=== PATIENT | female | born 1970 | race Caucasian/White ===

== ENCOUNTER 2021-10-21 08:51 | Outpatient (RCR) | payer BC, MEDICAID, SELFPAY | END 2021-12-31 12:00 | disposition home or self-care (01) | LOC: PT 08:51 | PROVIDERS: Visit Provider Internal Medicine | DX: I25.10 Atherosclerotic heart disease of native coronary artery without angina pectoris (principal); Z95.2 Presence of prosthetic heart valve | CPT/HCPCS: 93798 ==

== ENCOUNTER 2021-12-05 13:26 | Emergency (ER) | payer BC, MEDICAID, SELFPAY ==
--- NOTE | 2021-12-05 14:02 | EXP.UTC ---
Discharge Plan Disposition Patient Disposition: Home, Self-Care Condition: Good Prescriptions Prescriptions: New saekbirfkghgjlm-zhebjpnln-JG [Bromfed DM] 2-30-10 mg/5 mL Syrup 5 - 10 ml PO Q4H PRN (Reason: Cough) Qty: 240 0RF Referrals Follow up/Referrals: Birdie Bellamy [Primary Care Provider] - See instructions Clinical Impressions Clinical Impression: Upper respiratory infection Discharge ED Provider: Haven Cutler [facility] HPI General Stated complaint: Cough, headache, runny nose Time Seen by Provider: 12/05/21 14:02 History of Present Illness Provider Complaint: Cough, headache, runny nose, sinus pressure X 3 days. No fever. Onset (ago): day(s) (3) Relieving factors: none Exacerbating factors: none Associated symptoms: denies other symptoms Treatments prior to arrival: none Related Data Previous Rx's Medication Instructions Recorded rbdfmhokznnapdc-rrfmggozsswncrn-ME 5 - 10 ml PO Q4H PRN Cough #240 mL 12/05/21 2 mg-30 mg-10 mg/5 mL oral syrup (Bromfed DM) Allergies Allergy/AdvReac Type Severity Reaction Status Date / Time No Known Allergies Allergy Unverified 12/05/21 14:09 [facility] Social History Smoking Status: Never smoker alcohol intake: never current occupational status: unemployed Travel in the last 8 weeks: None ROS Obtained: Yes All systems reviewed & no additional complaints except as documented Constitutional Constitutional: Denies fever(s) ENT Ears, Nose, Mouth, and Throat: Reports sinus pain and Reports sore throat Physical Exam General General appearance: alert and in no apparent distress Head Head exam: normocephalic Eye Eye exam: Present PERRL ENT ENT exam: Present normal exam, normal oropharynx and TM's normal bilaterally Neck Neck exam: Present normal inspection Chest Chest inspection: Present symmetric chest wall rise Respiratory Respiratory exam: Present normal lung sounds bilaterally and respiratory distress Cardiovascular Cardiovascular exam: Present regular rate and normal rhythm Neurological Exam Neurological exam: Present alert and oriented X3 Psychiatric Psychiatric exam: Present normal affect and normal mood Skin Skin exam: Present warm, dry and intact Medical Decision Making Teofilo Inquiry Pt receiving controlled substance: No
[2021-12-05 14:07] VITALS: BP 155/85; PULSE 80; RESP 16; TEMP 36.5; O2SAT 99; BMI 36.2
[2021-12-05 14:30] VITALS: BP 155/85; PULSE 80; RESP 16; TEMP 36.5; O2SAT 99
== END 2021-12-05 14:30 | disposition home or self-care (01) ==
PROVIDERS: Emergency Provider Physician Assistant; PCP Family Medicine
DX: J06.9 Acute upper respiratory infection, unspecified (principal)
CPT/HCPCS: 99212; G0463

== ENCOUNTER 2022-03-24 09:02 | Emergency (ER) | payer MEDICAID, SELFPAY ==
[2022-03-24 09:03] VITALS: BP 151/81; PULSE 95; RESP 16; TEMP 36.7; O2SAT 96; BMI 35.1
[2022-03-24 10:54] VITALS: BP 151/81; PULSE 95; RESP 16; TEMP 36.7; O2SAT 96; BMI 35.2
--- NOTE | 2022-03-24 11:00 | EXP.UTC ---
Discharge Plan Disposition Patient Disposition: Home, Self-Care Condition: Good Prescriptions Prescriptions: New amoxicillin-pot clavulanate 875-125 mg Tablet 1 tab PO Q12H Qty: 20 0RF No Action paroxetine HCl 10 mg tablet 10 mg PO DAILY Label Comments: TAKE 1 TABLET BY MOUTH ONCE DAILY atorvastatin 10 mg tablet 10 mg PO DAILY meloxicam 15 mg tablet 15 mg PO DAILY Label Comments: TAKE 1 TABLET BY MOUTH ONCE DAILY penicillin V potassium 500 mg tablet 500 mg PO Q4-6H Label Comments: TAKE 1 TABLET BY MOUTH EVERY 6 HOURS UNTIL GONE levothyroxine 75 mcg tablet 75 mcg PO DAILY Label Comments: TAKE 1 TABLET BY MOUTH ONCE DAILY furosemide 20 mg tablet 20 mg PO DAILY Label Comments: TAKE 1 TABLET BY MOUTH ONCE DAILY NEEDED metoprolol succinate 25 mg tablet extended release 24 hr 25 mg PO DAILY Label Comments: TAKE 1 TABLET BY MOUTH ONCE DAILY Referrals Follow up/Referrals: Birdie Bellamy [Primary Care Provider] - See instructions Activity Restrictions/Add. Instructions Additional Instructions/Restrictions: Drink plenty of fluids. Take the medications as directed. Follow up with your regular doctor. GO TO THE ER FOR ANY WORSENING SYMPTOMS Stop the penicillin that you are on and start the augmentin (amoxicillin/clavulanate). Follow up with your dentist. Make sure they know you are having these issues today. Clinical Impressions Clinical Impression: Abscess, dental Stand Alone Forms Stand Alone Forms: Work/School Release Instructions Patient Instructions: Tooth Abscess, DI for Tooth Abscess Discharge ED Provider: Favio Mcmahan [facility] General Stated complaint: Lt side of face is swollen Mode of Arrival: Ambulatory Source of Information: Patient Limitations: No Limitations Time Seen by Provider: 03/24/22 11:00 Description of Symptoms (Recalled from Triage Doc. by RN): face swollen, and pain. Had a root canal 1 month ago and now swollen and hurting. HEENT Symptoms (Recalled from RN notes): Yes Resp Symptoms (Recalled from RN notes): No Skin Symptoms (Recalled from RN notes): No MS Symptoms (Recalled from RN notes): No Functional Status (Recalled from RN notes): n/a History of Present Illness Provider Complaint: She has been having swelling of the left side of her face for the past 2 days. She has a history of a having an issue with her teeth in that area. Her dentist started her on penicillin 2 days ago, but she states that her symptoms are getting worse instead of better. Related Data Home Medications Medication Instructions Recorded Confirmed atorvastatin 10 mg tablet 10 mg PO DAILY . 03/24/22 03/24/22 furosemide 20 mg tablet 20 mg PO DAILY . 03/24/22 03/24/22 levothyroxine 75 mcg tablet 75 mcg PO DAILY . 03/24/22 03/24/22 meloxicam 15 mg tablet 15 mg PO DAILY , 03/24/22 03/24/22 metoprolol succinate 25 mg 25 mg PO DAILY . 03/24/22 03/24/22 tablet,extended release 24 hr paroxetine HCl 10 mg tablet 10 mg PO DAILY . 03/24/22 03/24/22 penicillin V potassium 500 mg 500 mg PO Q4-6H . 03/24/22 03/24/22 tablet Previous Rx's Medication Instructions Recorded amoxicillin 875 mg-potassium 1 tab PO Q12H #20 tabs 03/24/22 clavulanate 125 mg tablet Allergies Allergy/AdvReac Type Severity Reaction Status Date / Time No Known Allergies Allergy Verified 03/24/22 10:57 Worker's Comp Is this a Worker's Comp case?: No [facility] Disclaimer: The information contained in this section may have been updated after the patient was seen, as this information can be updated by other users. Social History Smoking Status: Never smoker alcohol intake: never current occupational status: unemployed Travel in the last 8 weeks: None ROS Obtained: Yes All systems reviewed & no additional complaints except as documented Constitutio
[2022-03-24 11:51] VITALS: BP 151/81; PULSE 95; RESP 16; TEMP 36.7; O2SAT 96
== END 2022-03-24 11:50 | disposition home or self-care (01) ==
LOC: ER 09:13 → UTC 09:14
PROVIDERS: Emergency Provider Nurse Practitioner Family; PCP Family Medicine
DX: K04.7 Periapical abscess without sinus (principal)
CPT/HCPCS: 96372; 99212; 99213; G0463; J0696

== ENCOUNTER 2022-11-24 10:01 | Emergency (ER) | payer BC, MEDICAID, SELFPAY ==
[2022-11-24 10:15] VITALS: BP 172/78; PULSE 66; RESP 20; TEMP 36.4; O2SAT 98; BMI 36.6
[2022-11-24 10:23] VITALS: BP 172/78; PULSE 66; RESP 20; TEMP 36.4; O2SAT 98
--- NOTE | 2022-11-24 10:24 | EXP.UTC ---
Discharge Plan Disposition Patient Disposition: Home, Self-Care Condition: Good Prescriptions Prescriptions: New guaifenesin [Mucinex] 600 mg tablet extended release 12hr 600 mg PO BID PRN (Reason: cough) Qty: 20 0RF No Action paroxetine HCl 10 mg tablet 10 mg PO DAILY Patient Comments: TAKE 1 TABLET BY MOUTH ONCE DAILY atorvastatin 10 mg tablet 10 mg PO DAILY meloxicam 15 mg tablet 15 mg PO DAILY Patient Comments: TAKE 1 TABLET BY MOUTH ONCE DAILY penicillin V potassium 500 mg tablet 500 mg PO Q4-6H Patient Comments: TAKE 1 TABLET BY MOUTH EVERY 6 HOURS UNTIL GONE levothyroxine 75 mcg tablet 75 mcg PO DAILY Patient Comments: TAKE 1 TABLET BY MOUTH ONCE DAILY furosemide 20 mg tablet 20 mg PO DAILY Patient Comments: TAKE 1 TABLET BY MOUTH ONCE DAILY NEEDED metoprolol succinate 25 mg tablet extended release 24 hr 25 mg PO DAILY Patient Comments: TAKE 1 TABLET BY MOUTH ONCE DAILY amoxicillin-pot clavulanate 875-125 mg Tablet 1 tab PO Q12H Qty: 20 0RF Referrals Follow up/Referrals: Birdie Bellamy [Primary Care Provider] - See instructions Activity Restrictions/Add. Instructions Additional Instructions/Restrictions: *Monitor Temp, Over the counter Motrin or Tylenol as directed/as needed Tylenol every 4 hours and Motrin every 6 hours (as long as your family doctor has told you that you can take it) for fever or pain. and straight to ER if unable to lower temp less than 101.0 after medication given *Warm salt water gargles may help to soothe the throat *Throat Lozenges? *Warm fluids like tea with honey may help to soothe the throat? *Sleep elevated *Humidifier/Vaporizer Follow up IMMEDIATELY for new or worsening symptoms or no Noticeable improvement over the next 48-72 hours. 911 for difficulty breathing or swallowing You were tested for today for COVID19 your test result should be back in the next 24 hours You may check for your results on the [facility] Portal if your COVID test is positive you will need to Quarantine for 5 days Clinical Impressions Clinical Impression: Viral syndrome Instructions Patient Instructions: DI for Viral Syndrome, DI for COVID-19 (Suspected or Confirmed ) Discharge ED Provider: Maddie Nettles [facility] HPI General Stated complaint: exposed to covid, body aches and cough Mode of Arrival: Ambulatory Source of Information: Patient Limitations: No Limitations Time Seen by Provider: 11/24/22 10:24 Description of Symptoms (Recalled from Triage Doc. by RN): PATIENT C/O CHILLS, FEVER, AND BODY ACHES SINCE YESTERDAY. RECENTLY EXPOSED TO COVID HEENT Symptoms (Recalled from RN notes): No Resp Symptoms (Recalled from RN notes): No Skin Symptoms (Recalled from RN notes): No MS Symptoms (Recalled from RN notes): No Functional Status (Recalled from RN notes): WNL History of Present Illness Provider Complaint: Patient states that she was recently around family members that have tested positive for COVID and now she is having some symptoms States that she has been having fever, chills and bodyaches since yesterday and today she wasnt feeling any better so she came in to get tested Related Data Home Medications Medication Instructions Recorded Confirmed atorvastatin 10 mg tablet 10 mg PO DAILY . 03/24/22 03/24/22 furosemide 20 mg tablet 20 mg PO DAILY . 03/24/22 03/24/22 levothyroxine 75 mcg tablet 75 mcg PO DAILY . 03/24/22 03/24/22 meloxicam 15 mg tablet 15 mg PO DAILY , 03/24/22 03/24/22 metoprolol succinate 25 mg 25 mg PO DAILY . 03/24/22 03/24/22 tablet,extended release 24 hr paroxetine HCl 10 mg tablet 10 mg PO DAILY . 03/24/22 03/24/22 penicillin V potassium 500 mg 500 mg PO Q4-6H . 03/24/22 03/24/22 tablet Previous Rx's Medication Instructions Recorded amoxicillin 875 mg-potassium 1 tab PO Q12H #20 tabs 03/24/22 clavulanate 125 mg ta
== END 2022-11-24 10:41 | disposition home or self-care (01) ==
PROVIDERS: Emergency Provider Nurse Practitioner; PCP Family Medicine
DX: R50.9 Fever, unspecified (principal); M79.18 Myalgia, other site; B34.9 Viral infection, unspecified; Z20.822 Contact with and (suspected) exposure to COVID-19; J45.909 Unspecified asthma, uncomplicated; F41.9 Anxiety disorder, unspecified; I10 Essential (primary) hypertension; E78.5 Hyperlipidemia, unspecified; E03.9 Hypothyroidism, unspecified
CPT/HCPCS: 87635; 99212; 99213; G0463

== ENCOUNTER 2023-11-16 09:55 | Emergency (ER) | payer BC, MEDICAID, SELFPAY ==
[2023-11-16 10:10] VITALS: BP 136/73; PULSE 69; RESP 20; TEMP 36.8; O2SAT 97; BMI 35.6
--- NOTE | 2023-11-16 10:24 | EXP.UTC ---
Discharge Plan Disposition Patient Disposition: Home, Self-Care Condition: Good Prescriptions Prescriptions: New benzonatate 100 mg capsule 100 mg PO TIDP PRN (Reason: Cough) Qty: 30 0RF methylprednisolone 4 mg Tablets,Dose Pack 4 mg PO DIRECTED 6 Days Qty: 21 0RF Rx Instructions: Take 1 pack as directed for 6 days amoxicillin-pot clavulanate 875-125 mg Tablet 1 tab PO Q12H Qty: 20 0RF No Action paroxetine HCl 10 mg tablet 10 mg PO DAILY Patient Comments: TAKE 1 TABLET BY MOUTH ONCE DAILY atorvastatin 10 mg tablet 10 mg PO HS Patient Comments: TAKE 1 TABLET BY MOUTH ONCE DAILY metoprolol succinate 50 mg tablet extended release 24 hr 50 mg PO DAILY Patient Comments: TAKE 1 TABLET BY MOUTH ONCE DAILY meloxicam 15 mg tablet 15 mg PO DAILY Patient Comments: TAKE 1 TABLET BY MOUTH ONCE DAILY levothyroxine 75 mcg tablet 75 mcg PO DAILY Patient Comments: TAKE 1 TABLET BY MOUTH ONCE DAILY oxycodone-acetaminophen 10-325 mg tablet 1 tab PO DAILY metoprolol succinate 25 mg tablet extended release 24 hr 25 mg PO DAILY Patient Comments: TAKE 1 TABLET BY MOUTH ONCE DAILY Referrals Follow up/Referrals: Birdie Bellamy [Primary Care Provider] - See instructions Activity Restrictions/Add. Instructions Additional Instructions/Restrictions: Drink plenty of fluids. Take tylenol or ibuprofen for pain or fever. Take the medications as directed. Follow up with your regular doctor. GO TO THE ER FOR ANY WORSENING SYMPTOMS Clinical Impressions Clinical Impression: Asthma exacerbation, Sinusitis Stand Alone Forms Stand Alone Forms: Work/School Release Instructions Patient Instructions: Sinusitis, DI for Sinusitis Print Language Print Language: Romansh Discharge ED Provider: Favio Mcmahan [facility] General Stated complaint: soa runny nose Time Seen by Provider: 11/16/23 10:24 Related Data Home Medications ?Medication ?Instructions ?Recorded ?Confirmed atorvastatin 10 mg tablet 10 mg PO HS 11/16/23 11/16/23 levothyroxine 75 mcg tablet 75 mcg PO DAILY 11/16/23 11/16/23 meloxicam 15 mg tablet 15 mg PO DAILY 11/16/23 11/16/23 metoprolol succinate 25 mg 25 mg PO DAILY 11/16/23 11/16/23 tablet,extended release 24 hr metoprolol succinate 50 mg 50 mg PO DAILY 11/16/23 11/16/23 tablet,extended release 24 hr oxycodone-acetaminophen 10 mg-325 1 tab PO DAILY 11/16/23 11/16/23 mg tablet paroxetine HCl 10 mg tablet 10 mg PO DAILY 11/16/23 11/16/23 Previous Rx's ?Medication ?Instructions ?Recorded amoxicillin 875 mg-potassium 1 tab PO Q12H #20 tabs 11/16/23 clavulanate 125 mg tablet benzonatate 100 mg capsule 100 mg PO TIDP PRN Cough #30 caps 11/16/23 methylprednisolone 4 mg tablets in 4 mg PO DIRECTED 6 days #21 tabs 11/16/23 a dose pack Allergies Allergy/AdvReac Type Severity Reaction Status Date / Time No Known Allergies Allergy Verified 03/24/22 10:57 [facility] Disclaimer: The information contained in this section may have been updated after the patient was seen, as this information can be updated by other users. Medical History (Updated 11/16/23 @ 11:05 by Favio Mcmahan APRN) History of anemia Thyroid disease Anxiety Asthma Hyperlipidemia Hypertension Surgical History (Updated 11/24/22 @ 10:23 by Kianna Robledo RN) History of tubal ligation History of open heart surgery History of hernia repair History of hysterectomy Social History Smoking Status: Never smoker alcohol intake: never current occupational status: unemployed Travel in the last 8 weeks: None ROS Obtained: Yes All systems reviewed & no additional complaints except as documented Constitutional Constitutional: Reports poor appetite Eyes Eyes: Reports system reviewed and no additional complaints, except as documented ENT Ears, Nose, Mouth, and Throat: Reports as per HPI Cardiovascular Cardiovascular: Reports system reviewed and no additional complaints, except as documented and Denies chest pain Respiratory Respiratory: Denies shortness of breath, Reports chest congestion, Reports cough, Denies stridor and Denies wheezing Gastrointestinal Gastrointestingal: Reports system reviewed and no additional complaints, except as documented; Denies abdominal pain, diarrhea or vomiting Musculoskeletal Musculoskeletal: Reports system reviewed and no additional complaints, except as documented and Denies arthralgias Integumentary/Breasts Skin/Breast: Reports system reviewed and no additional complaints, except as documented and Denies rash Neurologic Neurologic: Denies paresthesias Allergic/Immunologic Allergic/Immunologic: Denies wheezing Physical Exam General General appearance: alert and in no apparent distress Eye Eye exam: Present normal appearance, PERRL and EOMI ENT ENT exam: Present mucous membranes moist and normal external ear exam Expanded ENT Exam External ear exam: Present normal external inspection TM/Canal exam: Bilateral TM: erythema and bulging Nose exam: Absent sinus tenderness Nasal speculum exam: Bilateral: normal Mouth exam: Present normal external inspection; Absent drooling Teeth exam: Present normal inspection Throat exam: Present tonsillar erythema and tonsillomegaly Neck Neck exam: Present normal inspection, full ROM and trachea midline; Absent tenderness, lymphadenopathy or thyromegaly Chest Chest inspection: Present normal inspection and symmetric chest wall rise; Absent tenderness or rash Respiratory Respiratory exam: Present normal lung sounds bilaterally; Absent respiratory distress, wheezes, stridor or accessory muscle use Cardiovascular Cardiovascular exam: Present regular rate, normal rhythm and normal heart sounds Abdominal Exam Abdominal exam: Present soft; Absent distention, tenderness, guarding, rebound or rigidity Extremities Exam Extremities exam: Present normal inspection, full ROM and normal capillary refill; Absent tenderness or calf tenderness Back Exam Back exam: Present normal inspection and full ROM; Absent tenderness Neurological Exam Neurological exam: Present alert and oriented X3 Psychiatric Psychiatric exam: Present normal affect and normal mood Skin Skin exam: Present warm, dry, intact and normal color Lymphatic Lymphatic Findings: no adenopathy Medical Decision Making Medical Records Medical records reviewed: No I reviewed the patient's medical records. Screening: Per USPSTF and CDC recommendations, given the prevalence of disease in our region, it is our hospital?s policy to screen for HIV and viral Hepatitis for all patients aged 18 and over and those with ongoing risk factors. Teofilo Inquiry Pt receiving controlled substance: No Lab Data Lab results reviewed: Yes I reviewed the patient's lab results.
[2023-11-16 11:10] VITALS: BP 136/73; PULSE 69; RESP 20; TEMP 36.8; O2SAT 97
== END 2023-11-16 11:13 | disposition home or self-care (01) ==
PROVIDERS: Emergency Provider Nurse Practitioner Family; PCP Family Medicine
DX: J01.90 Acute sinusitis, unspecified (principal); J45.901 Unspecified asthma with (acute) exacerbation
CPT/HCPCS: 99212; G0381

== ENCOUNTER 2024-10-24 09:17 | Emergency (ER) | payer BC, SELFPAY ==
--- OUTSIDE RECORDS SUMMARY | 2022-05-07 14:05 | XMS_ITS | Encounter Summary ---
Author Organization [facility] Address [address] [place] [id number] Care Team Providers Care Special Education Administrator Name Role Phone Birdie Bellamy MD Primary Care Provider [phone] Encounter Details Date Type Department Care Team (Late st Contact Info) Description 05/07/2022 2:05 PM EDT Hospital Encounter [facility] [address] [place] [id number] Social History Tobacco Use Types Packs/Day Years Used Date Smoking Tobacco: Never Smokeless Tobacco: Never Alcohol Use Standard Drinks/Week Comments Not Currently 0 (1 standard drink = 0.6 oz pur e alcohol) Abuse Screen Answer Date Recorded Feels Unsafe at Home or Work/School no 12/16/2022 Feels Threatened by Someone no 02/2022 Does Anyone Try to Keep You From Having Contact with Others or Doing Things Outside Your Home? no 12/16/2022 Physical Signs of Abuse Present no 12/16/2022 Comments No Sex and Gender Information Value Date Recorded Sex Assigned at Not on file Legal Sex Female 10:32 AM EDT Gender Identity Not on file Sexual Orientation Not on file Occupation Industry Job Start Date Job End Date [employer] Not on file Not on file Not on file documented as of this encounter Plan of Treatment Upcoming Encounters Date Type Department Care Team (Late st Contact Info) Description 10/26/2024 3:00 PM EDT Appointment [facility] [address] [place] [id number] 08/16/2025 10:00 AM EDT Office Visit [facility] [address] [place] [address] Lisa Lennon PA-C [address] [place] [address] documented as of this encounter Procedures Procedure Name Priority Date/Time Associated Diagnosis Comments XR CHEST PA AND LATERAL Routine 05/07/2022 2:06 PM EDT Shortness of breath documented in this encounter Results * XR Chest PA & Lateral (05/07/2022 2:06 PM EDT) Anatomical Region Laterality Modality Body, Chest N/A Radiographic Brii ging Narrative 05/07/2022 3:16 PM EDT Estephanei Ramirez [id number] 05/07/2022 Chest X-Ray PA & Lateral Indication: Shortness of breath/wheezing Findings: Lungs are clear. No effusions. Heart and mediastinum unremarkable. No pneumothorax. Interpretation: No acute cardiopulmonary findings Mesfin Cano, DO Please note that portions of this note may have been completed with a voice recognition program. Efforts were made to edit the dictations, but occasionally words are mistranscribed. Barrett Cano DO IMG DIAGNOSTIC IMAG ING ORDERABLES Final Result documented in this encounter Visit Diagnoses Not on filedocumented in this encounter Care Teams Special Education Administrator Relationship Specialty Start Date End Date Birdie Bellamy MD [address] [place] [address] PCP - General Family Medicine 08/11/21 documented as of this encounter
[2024-10-24 09:26] LABS: Coronavirus 19, PCR Not Detected (NotDetected); Influenza A, PCR Not Detected (NotDetected); Influenza B, PCR Not Detected (NotDetected)
--- OUTSIDE RECORDS SUMMARY | 2024-10-24 09:29 | XMS_ITS | Encounter Summary ---
Author Organization [place] [address] Care Team Providers Care Banquet Server Name Role Phone Birdie Bellamy MD Primary Care Provider [phone] Reason for Visit * Reason Comments Medication Refill Encounter Details Date Type Department Care Team (Late st Contact Info) Description 09/28/2024 Refill [facility] [address] [place] [address] Christofer Gonzales MD [address] [place] [address] Medication Refill Social History Tobacco Use Types Packs/Day Years Used Date Smoking Tobacco: Never Smokeless Tobacco: Never Alcohol Use Standard Drinks/Week Comments No 0 (1 standard drink = 0.6 oz pur e alcohol) Overall Financial Resource Strain (CARDIA) Answe r Date Recorded How hard is it for you to pa y for the very basics like food, housing, medical care, and heating? Not hard at all 01/04/2020 PHQ-2 Answer Date Recorded PHQ-2 Total Score 0 10/06/2023 Hunger Vital Sign Answer Date Recorded Within the past 12 months, y ou worried that your food would run out before you got the money to buy more. Never true 01/04/20 20 Within the past 12 months, t he food you bought just didn't last and you didn't have money to get more. Never true 01/04/2020 PRAPARE - Transportation Answer Date Re corded In the past 12 months, has l ack of transportation kept you from medical appointments or from getting medications? No 12/16 In the past 12 months, has l ack of transportation kept you from meetings, work, or from getting things needed for daily living? No 01/04/2020 Sexually Active Control Partners Comments Not Currently OCP Male Comments No Sex and Gender Information Value Date Recorded Sex Assigned at Not on file Legal Sex Female 4:20 PM EST Gender Identity Not on file Sexual Orientation Not on file documented as of this encounter Functional Status * Is the person deaf or does he/she have serious difficulty hearing? Answer Date of Assessment Author No 04/07/2023 3:49 PM Lory Workman MA * Is the person blind or does he/she have serious difficulty seeing even when wearing glasses? Answer Date of Assessment Author No 04/07/2023 3:49 PM Lory Workman MA * Does this person have serious difficulty walking or climbing stairs? Answer Date of Assessment Author No 04/07/2023 3:49 PM Lory Workman MA * Does this person have difficulty dressing or bathing? Answer Date of Assessment Author No 04/07/2023 3:49 PM Lory Workman MA * Because of a physical, mental or emotional condition, does this person have difficulty doing errands alone such as visiting a doctor's office or shopping? Answer Date of Assessment Author No 04/07/2023 3:49 PM Lory Workman MA documented as of this encounter Mental Status * Because of a physical, mental or emotional condition, does this person have serious difficulty concentrating, remembering or making decisions? Answer Entry Date Author No 04/07/2023 3:49 PM Lory Workman MA documented in this encounter Ordered Prescriptions Prescription Sig Dispense Quantity Refills Last Filled Start Date End Date meloxicam (MOBIC) 15 mg Oral TabletIndications:B ilateral hip pain Take 1 tablet by mouth once daily 90 Tablet 09/29/2024 documented in this encounter Plan of Treatment Not on file documented as of this encounter Goals Goal Patient Goal Type Associated Problems Recent Progress Patient-Stated? Author Blood Pressure < 140/90 Blood Pressure 122/70(2023 11:03 AM EST) Dionna Freed MA Maintain a healthy diet, exercise regularly and maintain an ideal body weight General No Elke Sheffield RMA documented as of this encounter Visit Diagnoses Diagnosis Bilateral hip pain Pain in joint, pelvic region and thigh documented in this encounter Discontinued Medications Medication Sig Discontinue Reason Start Date End Da te meloxicam (MOBIC) 15 mg Oral TabletIndications:Bilate ral hip pain Take 1 tablet by mouth once daily 07/05/2024 09/29/2024 documented as of this encounter Care Teams Banquet Server Relationship Specialty Start Date End Date Birdie Bellamy MD [address] [place] [address] PCP - General Family Medicine 06/10/21 documented as of this encounter
--- OUTSIDE RECORDS SUMMARY | 2024-10-24 09:29 | XMS_ITS | Encounter Summary ---
Author Organization [place] [address] Care Team Providers Care Candy Packer Name Role Phone Birdie Bellamy MD Primary Care Provider [phone] Reason for Visit * Reason Comments Medication Refill Encounter Details Date Type Department Care Team (Late st Contact Info) Description 10/19/2024 Refill [facility] [address] [place] [address] Christofer Gonzales MD [address] [place] [address] Medication Refill Social History Tobacco Use Types [...] Refills Last Filled Start Date End Date LEVOthyroxine (SYNTHROID) 75 mcg Oral TabletIndications:H ypothyroidism (acquired) Take 1 tablet by mouth once daily 90 Tablet 10/19/2024 documented in this encounter Miscellaneous Notes * Telephone Encounter - Rachel Quiles CPhT - 10/19/2024 2:17 PM EDT LEVOthyroxine (SYNTHROID) 75 mcg Oral Tablet Future Visit: none Last Assessed Visit: none Follow-Up: none Appointment protocol failed AND this patient requires the following labs/vitals. Routing to the office. TSH (12 months) documented in this encounter Plan of Treatment Not on file documented as of this encounter Goals Goal Patient Goal Type Associated Problems Recent Progress Patient-Stated? Author Blood Pressure < 140/90 Blood Pressure 122/70(2023 11:03 AM EST) No Dionna Berger MA Maintain a healthy diet, exercise regularly and maintain an ideal body weight General No Elke Sheffield RMA documented as of this encounter Visit Diagnoses Diagnosis Hypothyroidism (acquired) Unspecified hypothyroidism documented in this encounter Discontinued Medications Medication Sig Discontinue Reason Start Date End Da te LEVOthyroxine (SYNTHROID) 75 mcg Oral TabletIndications:Hypoth yroidism (acquired) Take 1 Tablet by mouth daily. 10/06/2023 10/19/2024 documented as of this encounter Care Teams Candy Packer Relationship Specialty Start Date End Date Birdie Bellamy MD [address] [place] [address] PCP - General Family Medicine 06/10/21 documented as of this encounter
--- OUTSIDE RECORDS SUMMARY | 2024-10-24 09:29 | XMS_ITS | Clinical Summary ---
Author Organization [facility] DIONNA GRANT Address [address] [place] [address] Phone Care Team Providers Care Elastic Attacher Chainstitch Name Role Phone Birdie Bellamy MD Primary Care Provider [phone] Allergies No known active allergies Medications oxyCODONE-acet aminophen (PERCOCET) 10-325 mg Oral Tablet Take 1 Tab by mouth every 4 hours as needed for Pain. Active acetaminophen 325 mg Oral Tab Take 650 mg by mouth every 4 hours as needed. 022 Active fUROsemide (LASIX) 20 mg Oral TabletIndicati ons:Leg swelling TAKE 1 TABLET BY MOUTH ONCE DAILY NEEDED 90 Tablet 3 023 Active potassium chloride SA (KLOR-CON M) 10 mEq Oral Tab Sust.Rel. Particle/Cryst alIndications: Hypokalemia Take 1 tablet by mouth once daily 30 Tablet 024 Active PARoxetine (PAXIL) 10 mg Oral TabletIndicati ons:Major depressive disorder in partial remission, unspecified whether recurrent Take 1 Tablet by mouth daily. 90 Tablet 2 024 Active atorvastatin (LIPITOR) 10 mg Oral TabletIndicati ons:H/O thoracic aortic aneurysm repair,Aortic valve insufficiency, etiology of cardiac valve disease unspecified Take 1 Tablet by mouth daily. 90 Tablet 3 024 Active colchicine 0.6 mg Oral TabletIndicati ons:Acute idiopathic gout of right foot 2 tabs po at onset and may repeat one tab after 2 hours per gout flare 10 Tablet 2 024 Active Pharmacy Compounding Access. Misc MiscIndication s:Obesity, Class II, BMI 35-39.9 Compound Semaglutide 0.5mg/0.5ml inject 0.25 ml (0.25mg=25 units) subcutaneously once weekly for four (4) weeks also dispense 0.3ml syringes to be used for weekly injection. 4 Each 3 024 Active benzonatate (TESSALON) 100 mg Oral Capsule Take 100 mg by mouth 3 times daily as needed. for cough 024 Active methylPREDNISo lone (MEDROL DOSPACK) 4 mg Oral Tablets, Dose PackIndication s:Acute bacterial sinusitis See package instructions 21 Tablet 025 Active metoprolol succinate (TOPROL-XL) 25 mg Oral Tablet Sustained Release 24 hrIndications: Aortic valve insufficiency, etiology of cardiac valve disease unspecified Take 1 tablet by mouth once daily 100 Tablet 2 025 Active meloxicam (MOBIC) 15 mg Oral TabletIndicati ons:Bilateral hip pain Take 1 tablet by mouth once daily 90 Tablet 025 Active LEVOthyroxine (SYNTHROID) 75 mcg Oral TabletIndicati ons:Hypothyroi dism (acquired) Take 1 tablet by mouth once daily 90 Tablet 025 Active LEVOthyroxine (SYNTHROID) 75 mcg Oral TabletIndicati ons:Hypothyroi dism (acquired) Take 1 Tablet by mouth daily. 90 Tablet 3 024 2024 Discontinued meloxicam (MOBIC) 15 mg Oral TabletIndicati ons:Bilateral hip pain Take 1 tablet by mouth once daily 90 Tablet 025 2024 Discontinued Active Problems Patient Care Coordination No te Formatting of this note migh t be different from the original. Teofilo 11/10/13 As expected Problem Noted Date Diagnosed Date Postoperative pain 04/07/2023 Overview (04/07/2023): History: Postop Assessment: Postoperative pain controlled. Plan: Continue Tylenol, and lidocaine patches. Oxycodone prn. Moderate persistent asthma without complication 01/20/2023 Severe obesity (BMI 35.0-39.9) with comorbidity 10/29/2022 Aortic valve regurgitation 12/16/2021 Overview (12/16/2021): 1. History of bicuspid aortic valve with ascending aortic aneurysm: 4.7 cm aneurysm, status post repair at [facility] 06/27/2021 with 30 mm Hemashield, and division of the fused aortic valve leaflets. Hypothyroidism (acquired) 12/16/2021 Bicuspid aortic valve 10/07/2021 Overview (04/07/2023): History: Echo: Bicuspid aortic valve. There is mild (1+) aortic valve regurgitation. There is mild aortic valve stenosis caused by calcified valve. Assessment: S/P 06/27/2021 AV repair. Plan: ASA 07/01/21 CTA chest: S/P aortic valve repair- No anastomotic stenosis, infection, or leak Aortic valve repair on June 27, 2021 at [facility] 06/27/21 Echo: Bicuspid aortic valve 05/13/21 Echo: EF 60-65%, bicuspid aortic valve, moderate AR, mild to moderate aortic valve stenosis, mild pulmonary hypertension, pulmonary arterial systolic pressure 35 mmHg, right atrial pressure of 3 mmHg, proximal ascending aorta moderately dilated 4.6 cm H/O thoracic aortic aneurysm repair 09/24/2021 Overview (12/16/2021): 2021 1. History of bicuspid aortic valve with ascending aortic aneurysm: 4.7 cm aneurysm, status post repair at [facility] 06/27/2021 with 30 mm Hemashield, and division of the fused aortic valve leaflets. Obesity, Class II, BMI 35-39.9 07/01/2021 Hypervolemia 06/28/2021 Overview (04/07/2023): History: Postoperative fluid shifts. Assessment: CXR with increased vascular markings. Plan: Continue Diuresis. HTN (hypertension) 06/28/2021 Overview (04/07/2023): History: Home medication: HCTZ Assessment: Normotensive. Plan: Continue BB. Atelectasis 06/28/2021 Overview (04/07/2023): History: No PMH of chronic respiratory disease Assessment: CXR with postoperative atelectasis. 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 analgesic Current drug use 02/04/2015 Overview (04/07/2023): (Z79.899)Other prison (current) drug therapy Lumbosacral radiculopathy 12/07/2014 Overview (04/07/2023): (M54.16)Radiculopathy, lumbar region Osteoporosis 10/09/2014 Overview (04/07/2023): (733.00)OSTEOPOROSIS NOS 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 Overview (04/07/2023): (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 Disorder of bone and articular cartilage 015 Overview (04/07/2023): (733.90)BONE & CARTILAGE DIS NOS Lumbosacral spondylosis without myelopathy 10/09 Overview (04/07/2023): (721.3)Lumbosacral Spondylosis Without Myelopathy Degeneration of lumbosacral intervertebral disc 10/09/2014 Overview (04/07/2023): (M51.37)Other intervertebral disc degeneration, lumbosacral region (722.52)Lumbar or Lumbosacral Disc Degeneration (M51.36)Other intervertebral disc degeneration, lumbar region Cramp in limb 10/09/2014 Overview (04/07/2023): (729.82)Cramp in Limb Continuous opioid dependence 10/09/2014 Overview (04/07/2023): (F11.20)Opioid dependence, uncomplicated (304.01)Opioid Type Dependence Continuous Abnormal weight gain 10/09/2014 Overview (04/07/2023): (783.1)Abnormal Weight Gain Fibromyalgia 07/03/2014 Major depression 06/13/2014 Low back pain radiating to left leg 11/09/2013 Bulging lumbar disc 11/09/2013 Umbilical hernia without obstruction and without gangrene 11/09/2013 Resolved Problems Problem Noted Date Diagnosed Date Resolved Date Thoracic ascending aortic aneurysm 06/11/2021 12/16/2021 Knee strain, right, initial encounter 06/02/2021 12/16/2021 Effusion of right knee 06/02/202112/16 Chronic female pelvic pain 08/03/2017 0 08/27/2017 Abnormal uterine bleeding (AUB) 08/03/2017 08/27/2017 Menometrorrhagia 04/09/2015 08/27/2017 Encounters Date Type Department Care Team Description 10/19/2024 Refill [facility] [address] [place] [address] Christofer Gonzales MD Medication Refill 09/28/2024 [facility]ill [facility] [address] [place] [address] Christofer Gonzales MD Medication Refill from Last 3 Months Immunizations Immunization Administration Dates Next Due Hepatitis A, Adult 03/11/2018 Pfizer SARS-CoV-2 Vaccine 12+ Yrs (Purple Cap) 0 08/26/2021 Surgical History Surgery Date Site/Laterality Comments TUBAL LIGATION VENTRAL HERNIA REPAIR 02/22/2014 N/A VENTRAL HERNIA REPAIR ; Surgeon: Tracey Linn MD; Location: [facility]; Service: General HYSTERECTOMY 08/03/2017 Bilateral DAVINCI ROBOTIC TOTAL HYSTERECTOMY BILATERAL SALPINGECTOMY RIGHT OOPHORECTOMY ; Surgeon: Christofer Baldwin MD; Location: [facility]; Service: Gynecology BREAST BIOPSY 07/20/2019 Left Medical History Medical History Date Comments Heart murmur Anxiety panick attacks i n past Urinary tract infection Chronic kidney disease right enl arged kidney Cardiac dysrhythmia, unspecified Headache Anemia Anesthesia complication hard to wake Back pain Arrhythmia Hypothyroidism (acquired) 12/16/2021 Thoracic ascending aortic aneurysm 06/11/2021 HTN (hypertension) 06/28/2021 Family History Medical History Relation Name Comments Hypertension Brother 1 Hypertension Brother 2 Aneurysm Father aorta Cancer Father bone Diabetes Father Heart Disease Father renal failure Father Heart Attack Maternal Grandfather liver failure Maternal Grandmother Hypertension Mother Other Mother thyroid Thyroid Disease Mother Aneurysm Paternal Grandfather Cancer Paternal Grandmother No Known Problems Sister Relation Name Status Comments Brother 1 Alive Brother 2 Alive Father Maternal Grandfather Maternal Grandmother Mother Alive Paternal Grandfather Paternal Grandmother Sister Alive Social History Tobacco Use Types Packs/Day Years Used Date Smoking Tobacco: Never Smokeless Tobacco: Never Tobacco Cessation:Counseling Given: Not Answered Alcohol Use Standard Drinks/Week Comments No 0 [...] on file Sexual Orientation Not on file Obstetrics History Para Term AB IAB SAB Ectopic Multiple Livin g Live Births 2 2 1 1 2 2 Date Outcome GA Total Labor Labor/2nd/3rd Weight Sex Type Anes PTL Suzie A1 A5 Name Clin 989 Term 7 lb 13 oz (3.544 kg) F Vag-S pont N Living Complications:None Delivery Location: 995 6 lb 11 oz (3.033 kg) Vag-S pont Living Complications:Toxemia in pre gnancy Delivery Location: Last Filed Vital Signs Vital Sign Reading Time Taken Comments Blood Pressure 122/70 12/21/2023 11:03 AM EST Pulse 80 06/12/2021 7:57 AM EDT Temperature 36.5 C (97.7 F) 12/21/2023 11:03 AM EST Respiratory Rate 16 06/12/2021 7:57 AM EDT Oxygen Saturation 99% 05/20/2021 11: 42 AM EDT Inhaled Oxygen Concentration - - Weight 103.8 kg (228 lb 12.8 oz) 2023 11:03 AM EST Height 165.1 cm (5' 5 ) 12/21/2023 11:0 3 AM EST Body Mass Index 38.07 12/21/2023 11:03 AM EST Plan of Treatment Health Maintenance Due Date Last Done Comments DTaP/TDaP/Td (1 - Tdap) 1989 Hepatitis B Vaccine (1 of 3 - 19+ 3-dose series) 1989 Pneumococcal Vaccine 50+ (1 of 2 - PCV) 1989 Colonoscopy 06/17/2015 FIT 06/17/2015 Sigmoidoscopy 06/17/2015 Virtual Colonography 06/17/2015 Zoster (1 of 2) 2020 Annual Wellness Exam 10/05/2024 10/06/2023, 02/16/2014 (Declined) COVID-19 Vaccine ( season) 2024 08/26/2021, 08/21/2020, 07/31/2020 Influenza Vaccine (#1) 2024 8 (Declined), 04/09/2015 (Declined), 02/16/2014 (Declined) Breast Cancer Screening 05/29/2026 05/30/19 25, 04/07/2023, 04/07/2023, Additional history exists Cologuard 11/03/2026 11/04/2023, 10/16, 09/17/2020, Additional history exists Colon Cancer Screening 11/03/2026 Meningococcal B Vaccine Aged Out No l onger eligible based on patient's age to complete this topic Goals Goal Patient Goal Type Associated Problems Recent Progress Patient-Stated? Author Blood Pressure < 140/90 Blood Pressure 122/70(2023 11:03 AM EST) No Dionna Berger MA Maintain a healthy diet, exercise regularly and maintain an ideal body weight General No Elke Sheffield RMA Procedures Procedure Name Priority Date/Time Associated Diagnosis Comments MM MAMMO DIGITAL MICHAEL SCREEN BILAT Routine 05/29/2024 9:24 AM EDT Encounter for screening mammogram for malignant neoplasm of breast COLOGUARD Routine 11/04/2023 7:20 PM EDT Screening for colon cancer from Last 3 Months or Most Recently Relevant to Health Maintenance Results * MM MAMMO DIGITAL MICHAEL SCREEN BILAT (05/29/2024 9:24 AM EDT) Anatomical Region Laterality Modality Breast Bilateral Mammography 05/29/2024 9:24 AM EDT Impressions 05/29/2024 12:33 PM EDT Negative ([id number]) RECOMMENDATION: Routine Screening Mammogram in 1 Year Bilateral . . COMMENTS: DISCLAIMER *The patient was notified by MyChart or mail of the results for this examination. *The patient's information was entered into a reminder system with a target due date for the next breast imaging, in accordance with the [employer] and the Society of Breast Imaging recommendations. *Breast Imaging has a false negative rate of 15%. *Any patient with a palpable abnormality, unexplained by breast imaging, should be managed on a clinical basis by the attending physician. Narrative 05/29/2024 12:33 PM EDT EXAM: MM MAMMO DIGITAL MICHAEL SCREEN BILAT EXAM DATE: 05/29/2024 9:24 AM INDICATION: Z12.31-Encounter for screening mammogram for malignant neoplasm of [id number] COMPARISON STUDIES: Compared with prior studies the most recent being 04/07/2023 MM MAMMO DIGITAL MICHAEL SCREEN BILAT at [facility] 07/19/2019 MM MAMMO DIGITAL MICHAEL DIAGN BILAT at [facility] TISSUE DENSITY: The breasts are heterogeneously dense, which may obscure small masses. FINDINGS: No mammographic evidence of malignancy. Procedure Note Tahir Hughes III, MD - 05/29/2024 EXAM: MM MAMMO DIGITAL MICHAEL SCREEN BILAT EXAM DATE: 05/29/2024 9:24 AM INDICATION: Z12.31-Encounter for screening mammogram for malignantneoplasm of [id number] COMPARISON STUDIES: Compared with prior studies the most recent being 04/07/2023 MM MAMMO DIGITAL MICHAEL SCREEN BILAT at [facility] 07/19/2019 MM MAMMO DIGITAL MICHAEL DIAGN BILAT at [facility] TISSUE DENSITY: The breasts are heterogeneously dense, which may obscuresmall masses. FINDINGS: No mammographic evidence of malignancy. IMPRESSION: Negative ([id number]) RECOMMENDATION: Routine Screening Mammogram in 1 Year Bilateral . . COMMENTS: DISCLAIMER *The patient was notified by MyChart or mail of the results for this examination. *The patient's information was entered into a reminder system with atarget due date for the next breast imaging, in accordance with the [place] [employer] and the Society of Breast Imaging recommendations. *Breast Imaging has a false negative rate of 15%. *Any patient with a palpable abnormality, unexplained by breast imaging,should be managed on a clinical basis by the attending physician. us Birdie Bellamy MD IMG MAMMOGRAPHY ORDERABLES Fin al Result * COLOGLAZARA (11/04/2023 7:20 PM EDT) COLOGUARD CLINICAL REPORT Negative Negative Monitor [facility] Comment: NEGATIVE TEST RESULT. A negative Cologuard result indicates a low likelihood that a colorectal cancer (CRC) or advanced adenoma (adenomatous polyps with more advanced pre-malignant features) is present. The chance that a person with a negative Cologuard test has a colorectal cancer is less than 1 in 1500 (negative predictive value >99.9%) or has an advanced adenoma is less than 5.3% (negative predictive value 94.7%). These data are based on a prospective cross-sectional study of 10,000 individuals at average risk for colorectal cancer who were screened with both Cologuard and colonoscopy. (Abner Gutierres et al, N Engl J Med 2014;370(14):2574-3321) The normal value (reference range) for this assay is negative. COLOGUARD RE-SCREENING RECOMMENDATION: Periodic colorectal cancer screening is an important part of preventive healthcare for asymptomatic individuals at average risk for colorectal cancer. Following a negative Cologuard result, the [place] [employer] Society and U.S. Multi-Society Task Force screening guidelines recommend a Cologuard re-screening interval of 3 years. References: [place] [employer] Guideline for Colorectal Cancer Screening: https://www.cancer.org/cancer/gooux-ufysuu-kqlwld/ajnullwzh-ktgnopxri-tqmowyg/ac s-rec ommendations.html.; Raz DK, Servando CR, Jessica CrawfordK, Colorectal Cancer Screening: Recommendations for Physicians and Patients from the U.S. Multi-Society Task Force on Colorectal Cancer Screening , Am J Gastroenterology 2017; 112:3196-2940. TEST DESCRIPTION: Composite algorithmic analysis of stool DNA-biomarkers with hemoglobin immunoassay. Quantitative values of individual biomarkers are not reportable and are not associated with individual biomarker result reference ranges. Cologuard is intended for colorectal cancer screening of adults of either sex, 45 years or older, who are at average-risk for colorectal cancer (CRC). Cologuard has been approved for use by the U.S. FDA. The performance of Cologuard was established in a cross sectional study of average-risk adults aged 50-84. Cologuard performance in patients ages 45 to 49 years was estimated by sub-group analysis of near-age groups. Colonoscopies performed for a positive result may find as the most clinically significant lesion: colorectal cancer [4.0%], advanced adenoma (including sessile serrated polyps greater than or equal to 1cm diameter) [20%] or non- advanced adenoma [31%]; or no colorectal neoplasia [45%]. These estimates are derived from a prospective cross-sectional screening study of 10,000 individuals at average risk for colorectal cancer who were screened with both Cologuard and colonoscopy. (Abner Vick al, N Engl J Med 2014;370(14):9957-8246.) Cologuard may produce a false negative or false positive result (no colorectal cancer or precancerous polyp present at colonoscopy follow up). A negative Cologuard test result does not guarantee the absence of CRC or advanced adenoma (pre-cancer). The current Cologuard screening interval is every 3 years. ([place] [employer] and U.S. Multi-Society Task Force). Cologuard performance data in a 10,000 patient pivotal study using colonoscopy as the reference method can be accessed at the following location: www.[employer]/results. Additional description of the Cologuard test process, warnings and precautions can be found at www.[employer].com. Stool 11/04/2023 7:20 PM EDT 11/06/2023 7:34 AM EDT Christofer Gonzales MD [employer] - ORDERAB LES Final Result Performing Organization Address City/State/[facility] Co de Phone Number [place] [employer] [address] [place] [address] [employer] [address] [place] [address] from Last 3 Months or Most Recently Relevant to Health Maintenance Insurance [facility] [id number] [facility] [address] PPO Member Subscriber Plan / Payer (Ef fective 2022-Present) Name:Estephanie Ramirez Relation to Subscriber:Self Name:Estephanie Ramirez Payer ID:[id number] (NAIC) Group ID:Not on file Type:Not on file Address: [address] [place] [id number] PPO Advance Directives For more information, please contact: [phone] * Full Code (Latest Code Status on File) Date Activated Date Inactivated Comments 08/03/2017 5:15 PM 08/04/2017 3:36 AM Care Teams Elastic Attacher Chainstitch Relationship Specialty Start Date End Date Birdie Bellamy MD [address] [id number] PCP - General Family Medicine 06/10/21
--- OUTSIDE RECORDS SUMMARY | 2024-10-24 09:30 | XMS_ITS | Clinical Summary ---
Author Organization [facility] Address [address] [place] [address] Care Team Providers Care Overhead Distribution Engineer Name Role Phone Birdie Bellamy MD Primary Care Provider Allergies No known active allergies Medications acetaminophen (TYLENOL) 325 MG tablet Take 2 tablets by mouth Every 4 (Four) Hours As Needed. 2 Active furosemide (LASIX) 20 MG tablet Take 1 tablet by mouth Daily As Needed. 2 Active multivitamin (THERAGRAN) tablet tablet Take 1 tablet by mouth Daily. Active meloxicam (MOBIC) 15 MG tablet Take 1 tablet by mouth Daily. Active aspirin 81 MG EC tablet Take 1 tablet by mouth Daily. Active atorvastatin (LIPITOR) 10 MG tablet Take 1 tablet by mouth Daily. 3 Active levothyroxine (SYNTHROID, LEVOTHROID) 75 MCG tablet Take 1 tablet by mouth Daily. 3 Active fluticasone-salm eterol (Advair HFA) 230-21 MCG/ACT inhalerIndicatio ns:Moderate persistent asthma without complication Inhale 2 puffs 2 (Two) Times a Day. 12 g 11 3 Active albuterol sulfate HFA 108 (90 Base) MCG/ACT inhalerIndicatio ns:Moderate persistent asthma without complication Inhale 2 puffs Every 4 (Four) Hours As Needed for Wheezing. 18 g 11 3 Active PARoxetine (PAXIL) 10 MG tablet Take 1 tablet by mouth Daily. 3 Active potassium chloride (MICRO-K) 10 MEQ CR capsule Take 1 capsule by mouth As Needed. As needed with lasix Active oxyCODONE-acetam inophen (PERCOCET) 10-325 MG per tablet Take 1 tablet by mouth Every 6 (Six) Hours As Needed for Moderate Pain. Active losartan (Cozaar) 25 MG tablet Take 1 tablet by mouth Daily. 30 tablet 1 4 Active metoprolol succinate XL (TOPROL-XL) 50 MG 24 hr tablet Take 1 tablet by mouth once daily 90 tablet 3 4 Active Tirzepatide-Weig ht Management (ZEPBOUND) 15 MG/0.5ML solution auto-injector Inject 1 mL under the skin into the appropriate area as directed 1 (One) Time Per Week. Active Active Problems Problem Noted Date Diagnosed Date Moderate persistent asthma without complication 01/20/2023 Overweight (BMI 25.0-29.9) 10/29/2022 Thoracic aortic aneurysm 10/07/2021 Overview (10/07/2021): 06/27/21 Echo: Aorta intact after decannulation with ascending aorta graft visualized 06/25/21 LHC: Right dominant coronary circulation, no epicardial CAD 06/24/21 Echo: EF 62%, aorta dilated 4.5 cm 05/31/21 CT chest: Fusiform aneurysmal dilatation of ascending thoracic aorta 47 mm without evidence of dissection 05/13/21 Echo: Proximal ascending aorta moderately dilated 4.6 cm Bicuspid aortic valve 10/07/2021 Overview (10/07/2021): 07/01/21 CTA chest: S/P aortic valve repair- No anastomotic stenosis, infection, or leak Aortic valve repair on June 27, 2021 at [facility] 06/27/21 Echo: Bicuspid aortic valve 05/13/21 Echo: EF 60-65%, bicuspid aortic valve, moderate AR, mild to moderate aortic valve stenosis, mild pulmonary hypertension, pulmonary arterial systolic pressure 35 mmHg, right atrial pressure of 3 mmHg, proximal ascending aorta moderately dilated 4.6 cm Encounters Date Type Department Care Team Description 08/10/2024 1:30 PM EDT Office Visit [facility] [address] [place] [address] Kevin Gaines MD Aneurysm of ascending aorta without rupture (Primary Dx); Bicuspid aortic valve; Overweight (BMI 25.0-29.9) 08/10/2024 Travel 08/04/2024 Telephone [facility] [address] [facility] [address] [place] [address] Kevin Gaines MD from Last 3 Months Immunizations Immunization Administration Dates Next Due COVID-19 (PFIZER) Purple Cap Monovalent 08/22/19 21,07/31/2020 Hepatitis A 03/11/2018 Family History Medical History Relation Name Comments No Known Problems Brother Aneurysm Father Heart disease Father Heart failure Father Kidney disease Father Cancer Maternal Grandfather Heart disease Maternal Grandfather Cancer Maternal Grandmother Heart disease Maternal Grandmother COPD Mother Hyperlipidemia Mother Hypertension Mother Cancer Other Paternal Heart attack Other Paternal Aneurysm Paternal Grandfather Cancer Paternal Grandfather Stroke Paternal Grandfather Cancer Paternal Grandmother Stroke Paternal Grandmother No Known Problems Sister Relation Name Status Comments Brother Alive Father Maternal Grandfather Maternal Grandmother Mother Alive Other Paternal Paternal Grandfather Paternal Grandmother Sister Alive Social History Tobacco Use Types Packs/Day Years Used Date Smoking Tobacco: Never Smokeless Tobacco: Never Tobacco Cessation:Counseling Given: No Alcohol Use Standard Drinks/Week Comments Not Currently [...] file Not on file Not on file Last Filed Vital Signs Vital Sign Reading Time Taken Comments Blood Pressure 104/72 08/10/2024 1:10 PM EDT Pulse 70 08/10/2024 1:10 PM EDT Temperature 36.2 C (97.1 F) 12/27/2023 8:35 AM EST Respiratory Rate 18 12/21/2022 10:18 AM EST Oxygen Saturation 99% 08/10/2024 1:10 PM EDT Inhaled Oxygen Concentration - - Weight 98 kg (216 lb) 08/10/2024 1:39 PM EDT Height 165.1 cm (5' 5 ) 08/10/2024 1:10 PM EDT Body Mass Index 35.94 08/10/2024 1:10 PM EDT Plan of Treatment Upcoming Encounters Date Type Department Care Team (Late st Contact Info) Description 10/26/2024 3:00 PM EDT Appointment [facility] [address] [place] [id number] 08/16/2025 10:00 AM EDT Office Visit [facility] [address] [place] [address] Lisa Lennon PARodolfoC [address] [facility] [address] [place] [address] Health Maintenance Due Date Last Done Comments Annual Gynecologic Pelvic an d Breast Exam 1970 Pneumococcal Vaccine 50+ (1 of 2 - PCV) 1989 TDAP/TD VACCINES (1 - Tdap) 1989 COLON CANCER SCREENING 5 YEA R SIGMOIDOSCOPY 06/17/2015 COLONOSCOPY 06/17/2015 CT COLONOGRAPHY 06/17/2015 FECAL OCCULT BLOOD TEST 06/17/2015 FIT Testing (1 year) 06/17/2015 ZOSTER VACCINE (1 of 2) 2020 ANNUAL PHYSICAL 08/12/2021 COVID-19 Vaccine ( - 2024-2 6 season) 2024 08/26/2021, 08/21/2020, 07/31/2020 INFLUENZA VACCINE 11/15/2024 MAMMOGRAM 05/29/2026 05/29/2024, 05/16, 04/07/2023, Additional history exists COLOGUARD 11/03/2026 11/04/2023, 09/17/2020 COLORECTAL CANCER SCREENING 11/03/2026 HEPATITIS C SCREENING Completed 12/17/2020 Insurance [employer] LINK [id number] [employer] [address] CROSS BLUE SHIELD PPO [employer] LINK [id number] [facility] RISK MGMT WORK COMP Care Teams Overhead Distribution Engineer Relationship Specialty Start Date End Date Birdie Bellamy MD [address] [place] [address] PCP - General Family Medicine 08/11/21
[2024-10-24 09:32] VITALS: BP 162/82; PULSE 93; RESP 19; TEMP 37.3; O2SAT 99; BMI 35.6
--- NOTE | 2024-10-24 09:35 | HMH.EDGENADL ---
Discharge Plan Disposition Patient Disposition: Home, Self-Care Prescriptions Prescriptions: New amoxicillin 500 mg capsule 1,000 mg PO TID 7 Days Qty: 42 0RF No Action paroxetine HCl 10 mg tablet 10 mg PO DAILY Patient Comments: TAKE 1 TABLET BY MOUTH ONCE DAILY atorvastatin 10 mg tablet 10 mg PO HS Patient Comments: TAKE 1 TABLET BY MOUTH ONCE DAILY metoprolol succinate 50 mg tablet extended release 24 hr 50 mg PO DAILY Patient Comments: TAKE 1 TABLET BY MOUTH ONCE DAILY meloxicam 15 mg tablet 15 mg PO DAILY Patient Comments: TAKE 1 TABLET BY MOUTH ONCE DAILY levothyroxine 75 mcg tablet 75 mcg PO DAILY Patient Comments: TAKE 1 TABLET BY MOUTH ONCE DAILY oxycodone-acetaminophen 10-325 mg tablet 1 tab PO DAILY metoprolol succinate 25 mg tablet extended release 24 hr 25 mg PO DAILY Patient Comments: TAKE 1 TABLET BY MOUTH ONCE DAILY benzonatate 100 mg capsule 100 mg PO TIDP PRN (Reason: Cough) Qty: 30 0RF methylprednisolone 4 mg Tablets,Dose Pack 4 mg PO DIRECTED 6 Days Qty: 21 0RF Rx Instructions: Take 1 pack as directed for 6 days amoxicillin-pot clavulanate 875-125 mg Tablet 1 tab PO Q12H Qty: 20 0RF Referrals Follow up/Referrals: Birdie Bellamy [Primary Care Provider, Medical] - See instructions Activity Restrictions/Add. Instructions Additional Instructions/Restrictions: You likely have a small pneumonia on the left side. I am treating you with a 7-day course of amoxicillin. Take this as prescribed. You can also take Tylenol and ibuprofen to help with your symptoms. With your primary care physician if symptoms do not improve. If you develop any new or worsening symptoms, or if you become concerned for your health for any reason, return to the emergency department for evaluation Clinical Impressions Clinical Impression: Pneumonia Instructions Patient Instructions: DI for Diarrhea and Traveler's Diarrhea -- Adult, DI for Diarrhea and Traveler's Diarrhea -- Child, DI for Nausea -- Adult, DI for Nausea -- Child Print Language Print Language: Khmer Discharge ED Provider: Deon Luong Adult HPI General Chief complaint: Nausea/Vomiting/Diarrhea Stated complaint: vomiting, diarrhea, aching body,chills Time Seen by Provider: 10/24/24 09:34 History of Present Illness HPI narrative: Estephanie Ramirez is a 54y female with a history of HLD, HTN, anxiety, asthma, thyroid disease, anemia, tubal ligation, open heart surgery, hernia repair, hysterectomy who presents to the emergency department for complaints of sore throat, nausea vomiting, diarrhea, full body aches. Patient states that recently, she was exposed to relatives diagnosed with COVID and another relative that was diagnosed with strep throat. She states over the last 2 days, she has had soreness in her throat that she is been taking ibuprofen for. She has also had nonbilious nonbloody vomiting as well as watery nonbloody diarrhea. She is taking a Zofran this morning and states that has helped with nausea and vomiting. She reports transient abdominal pain when she is having a bowel movement that completely resolves afterwards. She denies any abdominal pain currently. She denies any chest pain. She denies any recent antibiotic use Related Data Home Medications ?Medication ?Instructions ?Recorded ?Confirmed atorvastatin 10 mg tablet 10 mg PO HS 11/16/23 11/16/23 levothyroxine 75 mcg tablet 75 mcg PO DAILY 11/16/23 11/16/23 meloxicam 15 mg tablet 15 mg PO DAILY 11/16/23 11/16/23 metoprolol succinate 25 mg 25 mg PO DAILY 11/16/23 11/16/23 tablet,extended release 24 hr metoprolol succinate 50 mg 50 mg PO DAILY 11/16/23 11/16/23 tablet,extended release 24 hr oxycodone-acetaminophen 10 mg-325 1 tab PO DAILY 11/16/23 11/16/23 mg tablet paroxetine HCl 10 mg tablet 10 mg PO DAILY 11/16/23 11/16/23 Previous Rx's ?Medication ?Instructions ?Recorded amoxicillin 875 mg-potassium 1 tab PO Q12H #20 tabs 11/16/23 clavulanate 125 mg tablet benzonatate 100 mg capsule 100 mg PO TIDP PRN Cough #30 caps 11/16/23 methylprednisolone 4 mg tablets in 4 mg PO DIRECTED 6 days #21 tabs 11/16/23 a dose pack amoxicillin 500 mg capsule 1,000 mg (2 x 500 mg) PO TID 7 10/24/24 days #42 caps Allergies Allergy/AdvReac Type Severity Reaction Status Date / Time No Known Allergies Allergy Verified 03/24/22 10:57 [facility] Disclaimer: The information contained in this section may have been updated after the patient was seen, as this information can be updated by other users. Medical History (Updated 10/24/24 @ 12:10 by Deon Luong MD) History of anemia Thyroid disease Anxiety Asthma Hyperlipidemia Hypertension Surgical History (Updated 11/24/22 @ 10:23 by Kianna Robledo RN) History of tubal ligation History of open heart surgery History of hernia repair History of hysterectomy Social History Smoking Status: Never smoker alcohol intake: never current occupational status: unemployed Travel in the last 8 weeks?: None Have you lived/traveled outside US in past 30 days?: No Contact w/someone who lives/traveled outside US past 30 days?: No Exposure to someone with infectious disease in past 14 days?: No Do you have a fever (greater than 100.4 F or 38 C)?: No Have you tested positive for COVID-19?: No Exposed to someone with COVID-19 in past 14 days?: No Do you have a sore throat?: No Do you have a cough?: No Do you have any weakness?: No Do you have any diarrhea?: Yes Are you experiencing any unusual bleeding?: No Do you have any muscle aches/pain?: Yes Do you have any abdominal pain?: No Are you experiencing loss of taste or smell?: No ROS Obtained: Yes Systems reviewed as appropriate & no additional complaints except as documented Physical Exam General General appearance: alert and in no apparent distress Head Head exam: atraumatic Eye Eye exam: Present normal appearance ENT ENT exam: Present mucous membranes moist and normal external ear exam; Absent normal oropharynx (Posterior oropharyngeal erythema without tonsillar exudates or swelling. Uvula is midline) Neck Neck exam: Present full ROM Chest Chest inspection: Present symmetric chest wall rise Respiratory Respiratory exam: Present normal lung sounds bilaterally; Absent respiratory distress, wheezes or stridor Cardiovascular Cardiovascular exam: Present regular rate and normal rhythm Abdominal Exam Abdominal exam: Present soft; Absent distention, tenderness, guarding or rigidity Extremities Exam Extremities exam: Present normal inspection Back Exam Back exam: Present normal inspection Neurological Exam Neurological exam: Present alert and oriented X3 Psychiatric Psychiatric exam: Present normal affect Skin Skin exam: Present warm and dry Medical Decision Making Medical Records Screening: Per USPSTF and CDC recommendations, given the prevalence of disease in our region, it is our hospital?s policy to screen for HIV and viral Hepatitis for all patients aged 18 and over and those with ongoing risk factors. Teofilo Inquiry Pt receiving controlled substance: No Vital Signs: 10/24/24 09:32 10/24/24 12:00 Temperature 99.1 F Temperature Source Oral Pulse Rate 73 Pulse Rate [Left Radial] 93 H Respiratory Rate 19 Blood Pressure 147/94 H Blood Pressure [Right Arm] 162/82 H Blood Pressure Mean [Right Arm] 108 02 Sat by Pulse Oximetry 99 98 Lab Data Lab Results 10/24/24 09:21: SARS-CoV-2 (PCR) Not detected, Influenza A Untype (PCR) Not detected, Influenza Type B (PCR) Not detected 10/24/24 09:28: WBC 10.6, RBC 4.50, Hgb 11.6 L, Hct 38.0, MCV 84.4, MCH 25.8 L, MCHC 30.5 L, RDW 14.6, Plt Count 304, MPV 10.7 H, Neut % (Auto) 78.1, Lymph % (Auto) 15.4, Archuleta % (Auto) 4.1, Eos % (Auto) 1.7, Baso % (Auto) 0.4, Neut # (Auto) 8.3 H, Lymph # (Auto) 1.6, Archuleta # (Auto) 0.4, Eos # (Auto) 0.2, Baso # (Auto) 0.0, Sodium 140, Potassium 4.0, Chloride 104, Carbon Dioxide 27, Anion Gap 13.0, BUN 10, Creatinine 0.70, Estimated Creat Clear 141, Estimated GFR 87, Est GFR ( Amer) 106, Glucose 120 H, Calcium 9.1, Total Bilirubin 0.7, AST 28, ALT 16, Alkaline Phosphatase 126, Troponin I < 0.01, Total Protein 7.6, Albumin 4.4, Globulin 3.2, Albumin/Globulin Ratio 1.4, HCV Ab DUNIA w/Rflx PCR Qn Negative, HIV Ag/Ab Combo Qual Negative 10/24/24 09:28 10/24/24 09:28 Orders (Tests/Meds): ED MEDICATIONS Discontinued Medications Generic Name Dose Route Start Last Admin Trade Name Freq PRN Reason Stop Dose Admin Lactated Ringer's 1,000 mls @ 999 mls/hr 10/24/24 09:45 10/24/24 11:40 Lactated Ringer's 1000 Ml Bag IV 10/24/24 10:45 Infused .Q1H1M ONE Infusion ORDERS Category Date Time Status CXR --portable [XR chest portable] Stat Exams 10/24/24 09:45 Completed CBC w/Auto Diff [Complete Blood Count Auto Diff] Stat Lab 10/24/24 09:28 Completed CMP [Comprehensive Metabolic Panel] Stat Lab 10/24/24 09:28 Completed Diarrhea 23 Panel, PCR Stat Lab 10/24/24 09:45 Ordered HIV Combo Stat Lab 10/24/24 09:28 Completed Hepatitis C Ab Qual. W/ RFX Stat Lab 10/24/24 09:28 Completed Rapid PCR Covid and Flu A/B Stat Lab 10/24/24 09:21 Completed Troponin I Q3H Lab 10/24/24 12:45 Ordered Troponin I Q3H Lab 10/24/24 15:45 Ordered Troponin I Stat Lab 10/24/24 09:28 Completed EKG Request [ECG Request] Stat Y 10/24/24 09:51 Ordered ECG Data Tracing #1: I reviewed this ECG and interpreted as documented below: Normal sinus rhythm. No ST elevation or depression. QTc normal at 401. Isolated T wave inversions in aVL that are nonspecific Medical Decision Narrative: Estephanie Ramirez is a 54y female with a history of HLD, HTN, anxiety, asthma, thyroid disease, anemia, tubal ligation, open heart surgery, hernia repair, hysterectomy who presents to the emergency department for complaints of sore throat, nausea vomiting, diarrhea, full body aches. Patient states that recently, she was exposed to relatives diagnosed with COVID and another relative that was diagnosed with strep throat. She states over the last 2 days, she has had soreness in her throat that she is been taking ibuprofen for. She has also had nonbilious nonbloody vomiting as well as watery nonbloody diarrhea. She is taking a Zofran this morning and states that has helped with nausea and vomiting. She reports transient abdominal pain when she is having a bowel movement that completely resolves afterwards. She denies any abdominal pain currently. She denies any chest pain. She denies any recent antibiotic use. On arrival, patient blood pressure 162/82, heart rate 93 bpm, afebrile, oxygen saturation 99% on room air. Physical exam, stated above, revealed a nontoxic-appearing female in no respiratory distress. She has posterior oropharyngeal erythema without tonsillar exudates or swelling. Uvula is midline. Abdomen soft, nontender nondistended. Mucous membranes are moist. Differential diagnosis includes, but is not limited to: Viral respiratory illness, gastroenteritis, myocarditis, pericarditis, Pneumonia, among others. The most morbid conditions were considered and workup was based on these. Workup in the emergency department clued: Rapid COVID/flu testing, chest x-ray, EKG, troponin, CBC with differential, CMP, EKG. Patient was treated with 1 L lactated ringer. Patient is -1 on Centor criteria and there is low concern clinically for strep throat. EKG with isolated T wave inversions in aVL but no ST elevation or depression. See interpretation above Chest x-ray interpreted by me personally. There is possible small effusion versus pneumonia in the left lower lobe. This could represent a pneumonia given patient's symptoms. Patient's rapid COVID and flu testing is negative. laboratory studies are reassuring and nonactionable. Given this, we will treat patient for community-acquired pneumonia with 1 g amoxicillin 3 times daily for 7 days. Did recommend she continue Tylenol and ibuprofen for symptomatic relief. Is likely that there is still a viral component to her symptoms given her pharyngitis. All questions were answered. Return precautions were given. She demonstrated understanding and was in agreement this plan. She was then discharged from the emergency department in stable condition. Critical Care Critical Care Time Critical Care Time: No
--- NOTE | 2024-10-24 09:45 | XR_ITS ---
FINAL REPORT CLINICAL HISTORY: shortness of breath FINDINGS: A portable view of the chest was obtained. Patient is status post median sternotomy. There is mild cardiomegaly. Left basilar opacity is favored to be atelectasis. There may be a small left effusion. There is no pneumothorax. IMPRESSION: Possible small left effusion with left basilar atelectasis. Recommend upright PA and lateral when patient can tolerate. Reviewed, Interpreted and Dictated by Shelley Linton MD Transcribed by Laura Paulson Authenticated and [facility]
[2024-10-24 09:50] LABS: Hematocrit 38.0 % (37.0-47.0); Hemoglobin 11.6 g/dL (12.2-16.2); Immature Granulocytes % 0.3 %; Mean Corpuscular HGB Conc 30.5 g/dL (31.8-35.4); Mean Corpuscular Hemoglobin 25.8 pg (27.0-31.2); Mean Corpuscular Volume 84.4 fl (81-99); Nucleated Red Blood Cells % 0 %; Platelet Count 304 K/mm3 (142-424); Red Blood Count 4.50 M/mm3 (4.20-5.40); Red Cell Distribution Width-SD 44.4 fL; White Blood Count 10.6 K/mm3 (4.8-10.8)
[2024-10-24] MEDS: LACTATED RINGERS 1000ML 1,000 ML 999 ML IV (09:51)
[2024-10-24 09:56] LABS: Alanine Aminotransferase 16 U/L (12-78); Albumin Level 4.4 g/dl (3.5-5.0); Albumin/Globulin Ratio 1.4 (1.1-1.8); Alkaline Phosphatase 126 U/L (38-126); Anion Gap 13.0 mEq/L (5-15); Aspartate Amino Transferase 28 U/L (14-36); Bilirubin,Total 0.7 mg/dl (0.2-1.3); Blood Urea Nitrogen 10 mg/dl (7-17); Calcium 9.1 mg/dl (8.4-10.2); Carbon Dioxide 27 mmol/L (22.0-30.0); Chloride 104 mmol/L (98-107); Creatinine Clearance Estimated 141 mL/min (50-200); Creatinine,Serum 0.70 mg/dl (0.52-1.04); Estimated Glomerular Filt Rate 87 ml/min (>60); GFR (African American) 106 ML/MIN (>60); Globulin 3.2 g/dL (1.3-3.2); Glucose 120 mg/dl (74-100); Potassium 4.0 mmoL/L (3.5-5.1); Sodium 140 mmol/L (136-145); Total Protein,Serum 7.6 g/dl (6.3-8.2)
--- NOTE | 2024-10-24 10:05 | ECG_ITS ---
APPROVED REPORT Exam: Resting ECG HR:79 bpm ECG Measurements Heart Rate 79 AXES DC 168 P 75 QRSd 88 QRS 27 QT 366 T 83 QTc 401 Conclusion SINUS RHYTHM LEFT ATRIAL ENLARGEMENT [-0.15mV P-WAVE IN V1/V2] ABNORMAL ECG UNCONFIRMED REPORT Normal sinus rhythm. No ST elevation or depression. Electronically signed by : ANGELIC NEWTON, 10/25/2024 06:58:11
[2024-10-24 10:15] LABS: Troponin I < 0.01 ng/ml (0.00-0.034)
[2024-10-24 11:01] LABS: Hepatitis C Ab Qual. W/ RFX NEGATIVE (Negative)
[2024-10-24 12:00] VITALS: BP 147/94; PULSE 73; O2SAT 98
[2024-10-24 12:20] VITALS: BP 147/94; PULSE 73; RESP 19; TEMP 36.7; O2SAT 98
== END 2024-10-24 12:21 | disposition home or self-care (01) ==
PROVIDERS: Emergency Provider Student in an Organized Health Care Education/Training Program; PCP Family Medicine
DX: J18.9 Pneumonia, unspecified organism (principal)
CPT/HCPCS: 71045; 80053; 84484; 85025; 86803; 87389; 87636; 93005; 96360; 99285; J7120